=== PATIENT | female | born 1995 | race Caucasian/White ===

== ENCOUNTER → 2020-02-24 | Outpatient (CLI) | payer OTHER ==
--- NOTE | 2020-02-24 15:39 | RAD ---
Complete abdominal ultrasound dated 02/24/2020. No comparison available. CLINICAL INDICATION: Right upper quadrant pain. FINDINGS: Liver is homogeneous in echogenicity. No focal hepatic mass. Intrahepatic and extrahepatic biliary tree normal in caliber. The common bile duct measures 5 mm. Gallbladder is surgically absent. No abnormality at the gallbladder fossa. Right kidney measures 10.7 cm in length. Left kidney measures 12.0 cm in length. No hydronephrosis. Spleen is homogeneous in echogenicity and measures 12.7 cm longitudinal. Limited visualized portions of pancreas aorta and IVC unremarkable. No significant ascites. Attempts were made to visualize the appendix. The appendix is not clearly seen. IMPRESSION: No acute sonographic abnormality. Status post cholecystectomy. Electronically signed by: Kenyon Manzo MD (02/24/2020 3:36 PM) [id number]
== END | disposition home or self-care (01) ==
LOC: US 13:07
PROVIDERS: ATTEND Obstetrics & Gynecology
DX: Z34.82 Encounter for supervision of other normal pregnancy, second trimester (principal); R10.9 Unspecified abdominal pain; Z90.49 Acquired absence of other specified parts of digestive tract
CPT/HCPCS: 76700